=== PATIENT | female | born 1955 | race Caucasian/White ===

== ENCOUNTER → 2016-12-07 | Outpatient (CLI) | payer BC, OTHER ==
[~2016-12-07] MED LIST: ALBUAER19 INH; AMT10 PO; BUPR75TA20 PO; CALC0.009 EXT; CARB25TA12 PO; CHOL20009 PO; CITA20TA9 PO; CLBCRM30 EXT; CLOB-65 EXT; CLOP1TAB15 PO; COALSHA; FLVHFA44 INH; FOLI1TAB7 PO; HYDR-3124 PO; IPRASOL4 INH; LEVO100T7 PO; LORA-741 PO; LOSA25TA18 PO; PEDICHW44 PO; SIMV20TA2 PO; TRIA0.1C20 EXT; [UNRECOGNIZED DRUG - CODE]; [UNRECOGNIZED DRUG - CODE]
[2016-12-07 18:56] LABS: THYROID STIMULATING HORMONE 0.424 uIu/ml (0.300-4.500)
== END | disposition home or self-care (01) ==
LOC: C.LABSPEC 12:00
PROVIDERS: ATTEND Family Medicine
DX: E03.9 Hypothyroidism, unspecified (principal)

== ENCOUNTER → 2016-12-21 | Outpatient (CLI) | payer BC, OTHER ==
[2016-12-21 18:21] LABS: BASO % 0.5 %; BASO ABS # 0.04 K/uL (0-0.2); COMPLETE YES; EOS % 1.5 %; HEMATOCRIT 47.2 % (37-47); IG% 0.4 %; LYMPH % 36.2 %; MEAN CELL VOLUME 93.3 fL (80-100); MEAN CORPUSCULAR HEMOGLOBIN 32.2 pg (25-34); MEAN CORPUSCULAR HGB CONC 34.5 g/dl (32-36); MEAN PLATELET VOLUME 10.1 fL (7.4-10.4); MONO % 6.8 %; NEUT % 54.6 %; PLATELET COUNT 257 K/uL (130-400); RED BLOOD COUNT 5.06 M/uL (4.2-5.4); WHITE BLOOD COUNT 7.45 K/uL (4.8-10.8)
[2016-12-21 18:28] LABS: ALT/SGPT 12 U/L (12-78); AST/SGOT 17 U/L (15-37); BLOOD UREA NITROGEN 10 mg/dl (7-18); BUN/CREATININE RATIO 9.8 (10-20); CALCIUM 8.1 mg/dl (8.5-10.1); CARBON DIOXIDE 29 mmol/L (21-32); CHLORIDE 107 mmol/L (98-107); GLUCOSE 84 mg/dl (70-99); POTASSIUM 4.2 mmol/L (3.5-5.1); SODIUM 144 mmol/L (136-145)
[2016-12-21 18:41] LABS: ALKALINE PHOSPHATASE 69 U/L (45-117); THYROID STIMULATING HORMONE 0.708 uIu/ml (0.300-4.500)
== END | disposition home or self-care (01) ==
LOC: C.LABSPEC 09:51
PROVIDERS: ATTEND Family Medicine
DX: I49.9 Cardiac arrhythmia, unspecified (principal)

== ENCOUNTER → 2017-02-02 | Outpatient (CLI) | payer BC ==
[~2017-02-02] MED LIST changes: +GADAVIST IV PRN
--- NOTE | 2017-02-02 14:10 | DIAGNOSTIC IMAGING REPORT ---
MRI OF THE BRAIN COMBO CLINICAL HISTORY: Headache. Medullary thyroid cancer. COMPARISON STUDY: No priors. TECHNIQUE: MRI of the brain was performed utilizing various T1 and T2-weighted sequences in the axial, sagittal, and coronal planes. Contrast-enhanced sequences were acquired following the administration of 9.6 cc of Gadavist. FINDINGS: Brain parenchyma: There are age-related involutional changes noting moderate foci of T2 signal and rounded within the subcortical and periventricular white matter. There is no hemorrhage or mass effect. There is no restricted diffusion to suggest acute ischemia. No enhancing mass lesion is identified on the postcontrast images. Bauer-white matter differentiation is preserved. No extra-axial fluid collection is seen. The cerebellar tonsils are normal in configuration. Ventricles, sulci, and cisterns: Prominent secondary to involutional change. Pituitary and sella: Partially of the sella is incidentally noted. Intracranial vasculature: Normal flow voids are maintained at the skull base. Orbits: The bony orbits are grossly intact. Orbital contents are normal in appearance. Sinuses and mastoids: There is a left mastoid effusion. The right mastoid air cells are clear. The paranasal sinuses are well pneumatized. Calvarium: The calvarium appears heterogeneous. No clear destructive bony lesion is identified.. Cervical cord: Partially visualized cervical spinal cord is normal in morphology and signal intensity. IMPRESSION: 1. There is no hemorrhage, enhancing mass, or evidence of acute ischemia. 2. There are numerous small foci of T2 signal in amount is seen within the subcortical and periventricular white matter. This likely represents microangiopathic change. A demyelinating process such as multiple sclerosis is considered less likely. Clinical correlation will be required. Electronically signed by: Jonathan Kirk M.D. 02/02/2017 2:08 PM Dictated Date/Time: 02/02/2017 2:03 PM
== END | disposition home or self-care (01) ==
LOC: C.MRIBC 12:16
PROVIDERS: ATTEND Psychiatry & Neurology Neurology
DX: C73 Malignant neoplasm of thyroid gland (principal); R51 Headache; R90.89 Other abnormal findings on diagnostic imaging of central nervous system

== ENCOUNTER → 2017-03-09 | Outpatient (CLI) | payer BC ==
[~2017-03-09] MED LIST changes: -GADAVIST IV PRN
[2017-03-09 14:48] LABS: BASO % 0.7 %; BASO ABS # 0.05 K/uL (0-0.2); COMPLETE YES; EOS % 1.3 %; HEMATOCRIT 48.7 % (37-47); IG% 0.4 %; LYMPH % 32.1 %; LYMPH ABS # 2.44 K/uL (1.2-3.4); MEAN CELL VOLUME 94.4 fL (80-100); MEAN CORPUSCULAR HEMOGLOBIN 32.2 pg (25-34); MEAN CORPUSCULAR HGB CONC 34.1 g/dl (32-36); MEAN PLATELET VOLUME 9.7 fL (7.4-10.4); MONO % 5.8 %; NEUT % 59.7 %; PLATELET COUNT 277 K/uL (130-400); RED BLOOD COUNT 5.16 M/uL (4.2-5.4); WHITE BLOOD COUNT 7.59 K/uL (4.8-10.8)
[2017-03-09 15:14] LABS: ALT/SGPT 29 U/L (12-78); AST/SGOT 28 U/L (15-37); BLOOD UREA NITROGEN 16 mg/dl (7-18); BUN/CREATININE RATIO 17.3 (10-20); CALCIUM 8.7 mg/dl (8.5-10.1); CARBON DIOXIDE 26 mmol/L (21-32); CHLORIDE 109 mmol/L (98-107); CHOLESTEROL 159 mg/dl (0-200); CREATININE 0.91 mg/dl (0.60-1.20); GLUCOSE 88 mg/dl (70-99); POTASSIUM 5.1 mmol/L (3.5-5.1); SODIUM 144 mmol/L (136-145); TRIGLYCERIDES 96 mg/dl (0-150); VERY LOW DENSITY LIPOPROT CALC 19 mg/dl
[2017-03-09 15:22] LABS: ALKALINE PHOSPHATASE 98 U/L (45-117); HDL CHOLESTEROL 79 mg/dl; LDL CHOLESTEROL CALCULATED 61 mg/dl; TOTAL IRON BINDING CAPACITY 359 mcg/dl (250-450)
== END | disposition home or self-care (01) ==
LOC: C.LABSPEC 14:03
PROVIDERS: ATTEND Family Medicine
DX: E78.2 Mixed hyperlipidemia (principal); I10 Essential (primary) hypertension; R53.83 Other fatigue; E03.9 Hypothyroidism, unspecified

== ENCOUNTER → 2017-03-16 | Outpatient (CLI) | payer BC | END | disposition home or self-care (01) | LOC: C.LABSPEC 12:50 | PROVIDERS: ATTEND Family Medicine | DX: R30.0 Dysuria (principal) ==

== ENCOUNTER → 2017-04-17 | Outpatient (CLI) | payer BC ==
--- NOTE | 2017-04-18 06:19 | PAP/PSG TECHNICIAN REPORT ---
[facility] Human Services Assistant Polysomnogram Report Study name: None Report date: 04/18/2017 Study date: 04/17/2017 Referring Physician: DANNY AMOR DO, DO Name: JOSE LUIS FONSECA Interpreting Physician: Danny Amor D.O. Date of : 1955 Human Services Assistant: Debby Abreu RPSKELLY. Sex: Female Age: 61 StudyType: PSG PAP Weight: 216.7 lbs Height: 61 years, Height 5' 2" Neck Circum: 15.5 inches BMI: 39.63 Medications: Atarax 25 mg, Calcium 600+D, Carbidopa-Levodopa 25-100 mg, Celexa 20 mg, Clopidogrel Bisulfate 75 mg, [place]estone Vitamins, Flovent HFA 220, Folic Acid 1 mg, Ipratropium [place] 0.03%, Levothyroxine Sodium 125 MCG, Losartan Potassium 25 mg, Rizatriptan Benzoate 10 mg, Simvastatin 20 mg, Symbicort 160-4.5 MCG/ACT, Ventolin HFA 108(90 Base), Verapamil HCL ER 240 mg, Vitamin D 3 2000 units, Wellbutrin 75 mg Patient History 61 yr. old female here for an updated titration sleep study. Patient is currently on 11 CWP and is experiencing EDS. Patients [place] Sleepiness Scale Score is 18/24. Parameters Monitored NPSG: E1-M2, E2-M1, Fp1-M2, Fp2-M1, F3-M2, F4-M2, F4-M1, C3-M2, C4-M2, C4-M1, O1-M2, O2-M2, O2-M1, T3-M2, T4-M1, P3-M2, P4-M1, CHIN1, CHIN2, HR, EKG, Legs, PFLOW, SNOR, FLOW, CFLOW, Tidal Volume, THOR, ABDO, SpO2, PLTH, CPRESS, ETCO2 Wave, ETCO2, pH Sleep Architecture Sleep Stages Time at Lights Off 10:57:39 PM STAGES Time (min.) TST (%) Time at Lights On 6:03:09 AM Wake 26.0 -- Total Recording Time (TRT) 425.50 min. N1 23.5 6 Total Sleep Period (TSP) 413.5 min. N2 166.0 42 Total Sleep Time (TST) 399.5min. N3 98.0 25 Awake Time 26.0 min. REM 112.0 28 Wake after Sleep Onset 16.0 min. Sleep Efficiency (SE) 94 % Sleep Onset Latency (MICHELLE) 10.0 min. Number of Stage 1 Shifts None Awakenings 14 Stage Changes 86 Number of REM periods 11 REM 112.0 28 REM Latency 125.5 min. NREM 287.5 72 Body Position Analysis Supine Right Left Side Prone Vertical Total Sleep Time (min.) 425.2 0.0 0.0 0.00 0.0 0.2 Total Sleep Time (%) 100% 0% 0% 0 0% N/A% Total Sleep Time REM (min.) 112.0 0.0 0.0 None 0.0 0.0 Total Sleep Time NREM (min.) 287.5 0.0 0.0 None 0.0 0.0 Intermittent Wake (min.) 25.7 0.0 0.0 None 0.0 0.2 Total Sleep Period (%) 100% None None None None None Arousals Myoclonus (PLM) * Events Count Index Events Count Index Spontaneous 11 2 Events Awake (PLMW) 21 48.5 Respiratory 1 0.2 Events Asleep w/ Arousal (PLMA) 110 16.5 PLM 110 17 Events Asleep w/o Arousal (PLMS) 244 36.6 Snoring 1 0 Total Asleep 354 53.2 Total 123 18 Total 375 53 Respiratory Analysis * CA OA MA CH H RERA Total Count 0 0 0 0 0 1 0 Index 0.0 0.0 0.0 0 0.0 0 0.2 Mean Duration 0.0 0.0 0.0 0.00 0.0 21.8 21.8 Longest Duration 0.0 0.0 0.0 0.00 0.0 21.8 21.8 Respiratory Event Summary Total Supine ~Supine Right Left Prone REM NREM Apneas Count 0 0 N/A N/A N/A N/A 0 0 Index 0.0 0 N/A N/A N/A N/A 0 0 Hypopneas (4% Desat) Count 0 0 N/A N/A N/A N/A 0 0 Index 0.0 0.0 N/A N/A N/A N/A 0.0 0.0 Apneas & All Hypopneas Count 0 0 N/A N/A N/A N/A 0 0 Index 0.0 0 N/A N/A N/A N/A 0.0 0.0 Respiratory Events (Farmworker Machine+All Hyp+RERA) Count 0 1 N/A N/A N/A N/A 0 0 Index 0.2 0 N/A N/A N/A N/A 0.5 0.0 Respiratory Related Arousal Count 1 1 N/A N/A N/A N/A 1 0 Index 0.2 0 N/A N/A N/A N/A 1 0 Snoring Analysis Supine Right Left Prone REM NREM Total Snore duration 1.5 min Snores count 31 N/A N/A N/A 4 27 31 Snore mean duration 2.9 Sec Snores index 5 N/A N/A N/A 2.1 5.6 4.7 TST with snoring (%) 0.4% Desaturation Event Summary: Minimum %SpO2 Event Count Mean/Min/Max Duration(sec.) Desaturation Index % Time In Bed > 90 0 N/A 0.0 95.0 86 - 90 0 N/A 0.0 5.0 81 - 85 0 N/A 0.0 0.0 76 - 80 0 N/A 0.0 0.0 71 - 75 0 N/A 0.0 0.0 66 - 70 0 N/A 0.0 0.0 61 - 65 0 N/A 0.0 0.0 56 - 60 0 N/A 0.0 0.0 51 - 55 0 N/A 0.0 0.0 < 50 0 N/A 0.0 0.0 Total REM NREM Awake <50% 0.0 min. 0.0 min. 0.0 min. 0.0 min. 51 - 60% 0.0 min. 0.0 min. 0.0 min. 0.0 min. 61 - 70% 0.0 min. 0.0 min. 0.0 min. 0.0 min. 71 - 80% 0.0 min. 0.0 min. 0.0 min. 0.0 min. 81 - 90% 21.1 min. 18.7 min. 2.1 min. 0.3 min. 91 - 100% 404.3 min. 93.3 min. 285.4 min. 25.6 min. Average 92 92 92 94 Minimum SpO2 87 87 90 90 Desaturation Event Index 0.0 0.0 0.0 0.0 # Desat. Events below 89% 0 0 0 0 Time(%) with Saturation below 89% 0.0 0.0 0.0 0.0 Time(min.) with Saturation below 89% 0.2 0.2 0.0 0.0 Time (mins) REM (mins) NREM (mins) % of TST SpO2 Below 90% 0 0 N0 1.2 SpO2 Below 88% 400 112 288 0 Heart Rate Analysis Min (bpm) Max (bpm) Average (bpm) Awake 62 86 74 NREM 62 85 71 REM 62 85 73 Overall 62 85 71 Supplemental O2 Values Minimum O2 level: None Value Start Time End Time Human Services Assistant Comments MS. Fonseca slept in the supine position. No cardiac arrhythmia. Frequent PLMs noted. Bruxism noted. CPAP was initiated at +5 CMH2O room air and was not up titrated. A ResMed FX Myers for her, was used during titration. MS. Hill did not wake to use the restroom during the night. MS. Fonseca stated, that was a normal night, my legs always seem to move and bother me. The final report will be interpreted and signed by a sleep physician. The completed physician report will then be placed in the patient medical record. Therapy Event: Therapy (cm H20) 5 Total Time at Pressure (min.) 425.4 TST at Pressure (min.) 399.5 # Periods 1 Sleep Onset (min.) 9.9 REM Onset (min.) 135.4 Sleep Efficiency % 93 Wakefulness (%) 6.1 Wakefulness (min.) 25.9 NREM 1 (%) 5.5 NREM 1 (min.) 23.5 NREM 2 (%) 39.0 NREM 2 (min.) 166.0 NREM 3 (%) 23.0 NREM 3 (min.) 98.0 REM (%) 26.3 REM (min.) 112.0 # Arousals 123 Arousal Index 18.5 # Snore 31 Snore Index 4.7 AHI 0.0 AHI Supine 0.0 AHI Non-Supine N/A NREM AHI 0.0 REM AHI 0.0 RDI 0.2 # Obstructive 0 # Central Ap 0 # Mixed 0 # Hypopneas 0 RERAS 1 Total Respiratory Events 1 Time Below SpO2 89.00% (min.) 0.2 Mean NREM SpO2 (%) 92 Mean REM SpO2 (%) 92 Mean Sleep SpO2 (%) 92 Min NREM SpO2 (%) 90 Min REM SpO2 (%) 87 Position Supine (min.) 399.5 Position Non-supine (min.) 0.0 LM Index Sleep 53.2 LM Index NREM 58.6 LM Index REM 39.1 Mean Heart Rate (bpm) 71 Min Heart Rate (bpm) 62
--- NOTE | 2017-04-21 15:34 | Sleep Study ---
Sleep Study Report Date of Service: 04/17/2017 Sleep Study Report Clinical data: The patient is a 61-year-old female with a history of obstructive sleep apnea. It is unknown how long she has had sleep apnea. She wears nasal CPAP at 11 centimeters. She has complaints of excessive daytime somnolence despite wearing CPAP regularly. Her [place]amp[place] score is 18 out of a possible 24. Her BMI is elevated at 39.63. This was an in-lab CPAP retitration study. She is referred by Dr. Chery and her primary doctor is Dr. Cristo Davis. Sleep architecture: The total sleep. Was 413.5 minutes. The total sleep time was 399.5 minutes. The sleep efficiency was normal at 94 percent. Sleep latency was normal at 10 minutes. Wake after sleep onset was low at 16 minutes. The REM latency was top normal at 125.5 minutes. Sleep consisted of stage N1 6 percent, stage N2 42 percent, stage N3 25 percent, and stage REM 28 percent. Arousal data: The patient had a total of 123 arousals including 11 spontaneous arousals, 1 respiratory arousal, 110 PLM arousals, and 1 snoring arousal. The arousal index was 18. PLM data: The patient had a total of 354 periodic limb movements for an index of 53.2 which is severely elevated. There 110 limb movements associated with arousals for a PLM arousal index of 16.5. Respiratory data: The patient had 0 central apneas, 0 obstructive apneas, 0 mixed apneas, and 0 hypopneas. The apnea-hypopnea index was 0. She had 1Rera. This study was done on 5 centimeters of CPAP. Oximetry data: The average saturation was 92 percent. The minimum saturation was 87 percent. There was only 0.2 minutes with saturations less than 89 percent. EKG: The underlying rhythm was normal sinus. The cardiac rate ranged from 62 to 85 beats per minute. The average heart rate was 71 beats per minute. There was no arrhythmia noted. Engine Monitor comments: Patient slept in the supine position. No cardiac arrhythmias. Frequent PLM is noted. CPAP was initiated at 5 centimeters of water and was not up titrated. A ResMed FX Myers for her was used during titration. The patient indicated it was a normal night for her And her legs always seem to move in bother her. Impressions: 1. Obstructive sleep apnea-resolved with nasal CPAP at 5 centimeters 2. Restless leg syndrome Comments: This study would suggest that the patient's sleep apnea is resolved at only 5 centimeters. She has been on CPAP of 11 and we will discuss with her consideration of decreasing her CPAP pressure. The biggest abnormality we would seem to be the limb movements. This did result in an increased number of arousals. The patient is on some medications that could contribute to increased leg movements including Celexa. It is unknown if the disturbed sleep from the leg movements is contributing to her daytime somnolence. Consideration could be given to treatment for the underlying limb movement disorder. The choice of medications could be discussed with her neurologist in light of the fact she is already taking carbidopa-levodopa. She should then have follow-up to determine if there has been improvement. In addition a serum ferritin level should be checked if it has not been done so recently because of the association between iron deficiency and restless legs. If the ferritin level is less than 50 she should have treatment with iron replacement. Copies To 1: Cristo Davis M.D. ([facility]); Danny Boyce DO; Torres Chery M.D.
== END | disposition home or self-care (01) ==
LOC: C.NEUR 21:00
PROVIDERS: ATTEND Internal Medicine Pulmonary Disease
DX: G47.33 Obstructive sleep apnea (adult) (pediatric) (principal)

== ENCOUNTER → 2017-04-29 | Outpatient (CLI) | payer BC | END | disposition home or self-care (01) | LOC: C.LAB1850 11:55 | PROVIDERS: ATTEND Physician Assistant Medical | DX: G47.61 Periodic limb movement disorder (principal) ==

== ENCOUNTER → 2017-09-12 | Outpatient (CLI) | payer BC ==
[2017-09-12 18:46] LABS: HEMATOCRIT 41.8 % (37-47); MEAN CORPUSCULAR HEMOGLOBIN 31.4 pg (25-34); MEAN PLATELET VOLUME 9.5 fL (7.4-10.4); PLATELET COUNT 298 K/uL (130-400); WHITE BLOOD COUNT 9.24 K/uL (4.8-10.8)
[2017-09-12 19:03] LABS: ALB/GLOB RATIO 0.7 (0.9-2); ALKALINE PHOSPHATASE 90 U/L (45-117); ALT/SGPT 24 U/L (12-78); AST/SGOT 18 U/L (15-37); BLOOD UREA NITROGEN 19 mg/dl (7-18); BUN/CREATININE RATIO 20.5 (10-20); CALCIUM 8.2 mg/dl (8.5-10.1); CARBON DIOXIDE 24 mmol/L (21-32); CHLORIDE 105 mmol/L (98-107); CREATININE 0.91 mg/dl (0.60-1.20); GLUCOSE 91 mg/dl (70-99); HDL CHOLESTEROL 76 mg/dl; SODIUM 137 mmol/L (136-145)
[2017-09-12 19:19] LABS: CHOLESTEROL 145 mg/dl (0-200); CHOLESTEROL/HDL RATIO 1.9; LDL CHOLESTEROL CALCULATED 55 mg/dl; TRIGLYCERIDES 72 mg/dl (0-150); VERY LOW DENSITY LIPOPROT CALC 14 mg/dl
[2017-09-12 19:29] LABS: BASO ABS # 0.08 K/uL (0-0.2); BASOPHIL % 0.9 %; EOSINOPHIL % 1.7 %; LYMPH ABS # 2.95 K/uL (1.2-3.4); LYMPHOCYTE % 31.9 %; MDIFF REQUEST Y; NEUTROPHILS % 63.8 %
== END | disposition home or self-care (01) ==
LOC: C.LABSPEC 18:00
PROVIDERS: ATTEND Family Medicine
DX: E03.9 Hypothyroidism, unspecified (principal); E78.2 Mixed hyperlipidemia; I10 Essential (primary) hypertension

== ENCOUNTER → 2018-05-15 | Outpatient (CLI) | payer BC ==
[~2018-05-15] MED LIST changes: -FOLI1TAB7 PO; +FOLI1TAB8 PO; +IPRA-64 INH; -IPRASOL4 INH; +OPTIRAY 320 IV PRN
--- NOTE | 2018-05-15 09:57 | DIAGNOSTIC IMAGING REPORT ---
CT ABD/PELVIS IV AND ORAL CONT CLINICAL HISTORY: Diffuse abdominal pain. Constipation, diarrhea. History of thyroid carcinoma. COMPARISON STUDY: None. TECHNIQUE: Following the IV administration of 94 mL of Optiray-320, CT scan of the abdomen and pelvis was performed from the lung bases to the proximal femurs. Images are reviewed in the axial, sagittal, and coronal planes. IV contrast was administered without complication. A dose lowering technique was utilized adhering to the principles of ALARA. CT DOSE: 988.32 mGycm FINDINGS: Lower chest: There is pulmonary emphysema. No pleural effusions are visualized. Liver: No focal hepatic masses are visualized. There is equivocal early nodularity of the serosal surface of the left lobe. The portal vein appears patent. The hepatic veins appear patent. Gallbladder: Surgically absent Spleen: Normal in size and attenuation. Pancreas: Unremarkable. Adrenal glands: Unremarkable. Kidneys: There is 16mm left renal cyst. No solid renal masses are visualized. There is no hydronephrosis. Additional tiny right renal hypodensities are visualized also likely representing cysts Bowel: There are no transition zones indicate bowel obstruction. There is no acute diverticulitis. By history the appendix is surgically absent. There are postsurgical changes of prior gastric surgery. There is a mildly dilated proximal jejunal loop, likely at the level and anastomosis. At this level there is a small bowel intussusception. This is likely transient and of doubtful acute clinical significance. Peritoneum: There is no intraperitoneal free air or abdominal ascites. Vasculature: The abdominal aorta is normal in course and caliber. Adenopathy: None. Pelvic viscera: The uterus is surgically absent. Skeletal structures: No destructive osseous lesions are seen. IMPRESSION: 1. Postsurgical changes of a prior gastric bypass. 2. Small jejunal intussusception, likely transient and of doubtful acute clinical significance 3. Focally dilated jejunal loop, likely at the level of an anastomosis 4. No evidence of bowel obstruction. No evidence of free air 5. No acute inflammatory changes 6. Surgically absent gallbladder and uterus. Electronically signed by: Marcellus Pavon M.D. 05/15/2018 9:56 AM Dictated Date/Time: 05/15/2018 9:47 AM
== END | disposition home or self-care (01) ==
LOC: C.CTS 07:50
PROVIDERS: ATTEND Internal Medicine Gastroenterology
DX: C73 Malignant neoplasm of thyroid gland (principal); R10.9 Unspecified abdominal pain; Z98.84 Bariatric surgery status; K56.1 Intussusception; Z90.49 Acquired absence of other specified parts of digestive tract; Z90.711 Acquired absence of uterus with remaining cervical stump